=== PATIENT | male | born 1990 | race Caucasian/White ===

== ENCOUNTER 2019-11-17 13:12 | Inpatient (IN) | payer MEDICAID, OTHER ==
[~2019-11-17] VITALS: Ht 175.3 cm; Wt 102.5 kg
[2019-11-17 13:54] LABS: BASOPHILS % (AUTO) 0.4 % (0.0-2.0); EOSINOPHILS % (AUTO) 0.3 % (1.0-6.0); HEMATOCRIT 50.6 % (41-53); HEMOGLOBIN 18.3 g/dL (13.5-17.5); LYMPHOCYTES # (AUTO) 1.4 K/uL (1.0-4.8); LYMPHOCYTES % (AUTO) 15.8 % (22.0-44.0); MEAN CORPUSCULAR HEMOGLOBIN 31.3 pg (26.0-34.0); MEAN CORPUSCULAR HGB CONC 36.1 G/dL (31.0-37.0); MEAN CORPUSCULAR VOLUME 87 fL (80-100); MONOCYTES # (AUTO) 0.7 K/uL (0.1-1.0); MONOCYTES % (AUTO) 8.4 % (2.0-9.0); NEUTROPHILS # (AUTO) 6.7 K/uL (1.8-7.7); NEUTROPHILS % (AUTO) 75.1 % (40.0-70.0); PLATELET COUNT (AUTO) 329 K/uL (150-450); RED BLOOD CELL COUNT(AUTO) 5.84 MIL/uL (4.50-5.90); RED CELL DISTRIBUTION WIDTH 13.2 % (11.5-14.5)
[2019-11-17 14:01] LABS: ANION GAP 13 mmol/L (8-16); CALCIUM, TOTAL 9.5 mg/dL (8.8-10.5); CARBON DIOXIDE 27 mmol/L (22-29); CHLORIDE 98 mmol/L (98-107); CREATININE 0.87 mg/dL (0.60-1.30); GLOMERULAR FILTR. RATE CALC > 60 mL/min (>60); GLUCOSE,RANDOM 81 mg/dL (70-110); SODIUM SERUM 138 mmol/L (136-145); UREA NITROGEN, BLOOD 12 mg/dL (7-18)
[2019-11-17 14:07] LABS: ALANINE AMINOTRANSFERASE 97 U/L (12-78); ALBUMIN 4.7 g/dL (3.4-5.0); ALKALINE PHOSPHATASE 86 U/L (46-116); ASPARTATE AMINOTRANSFERASE 34 U/L (15-37); BILIRUBIN,TOTAL 0.6 mg/dL (0.1-1.0); TOTAL PROTEIN, SERUM 8.6 g/dL (6.4-8.2)
[2019-11-17 15:03] LABS: AMPHET/METH SCREEN,URINE NEGATIVE (NEGATIVE); BARBITURATE SCREEN, URINE NEGATIVE (NEGATIVE); BENZODIAZEPINES SCREEN,URINE NEGATIVE (NEGATIVE); CANNABINOID SCREEN,URINE NEGATIVE (NEGATIVE); COCAINE SCREEN,URINE NEGATIVE (NEGATIVE); METHADONE SCREEN, URINE NEGATIVE (NEGATIVE); OPIATE SCREEN,URINE NEGATIVE (NEGATIVE)
[2019-11-17 15:11] LABS: PHENCYCLIDINE SCREEN,URINE NEGATIVE (NEGATIVE)
[2019-11-17 18:14] LABS: SALICYLATE 1.6 mg/dL (2.8-20.0)
[2019-11-17 18:15] LABS: ACETAMINOPHEN < 2 mcg/mL (10-30)
[2019-11-17] MEDS ORDERED: QUEtiapine FUMARATE 100 MG TABLET PO PRN (18:15)
[2019-11-17] MEDS ORDERED: LORazepam 2 MG TABLET PO PRN (18:15)
[2019-11-17] MEDS ORDERED: ZOLPIDEM TARTRATE 10 MG TABLET PO PRN (18:15)
[2019-11-17] MEDS ORDERED: CALCIUM CARBONATE 500 MG CHEWABLE TABLET CHEW ONE (22:00)
[2019-11-18 02:11] VITALS: BP 109/60
[2019-11-18] MEDS ORDERED: INFLUENZA VIRUS VACCINE QVS 2019-20 (3YR+)/PF 60 MCG/0.5 ML SYRINGE IM ONE (02:45)
[2019-11-18] MEDS: FLUoxetine HCL 20 MG CAPSULE PO SCH (08:16)
[2019-11-18 08:26] VITALS: BP 132/76
[2019-11-18 08:49] LABS: CHOL/HDL RATIO 5.1 (4.2-7.3); THYROID STIMULATING HORMONE 3.68 uIU/mL (0.36-3.74)
[2019-11-18 09:09] LABS: FREE T4 (FREE THYROXINE) 1.49 ng/dL (0.76-1.46)
[2019-11-18] MEDS ORDERED: GuaiFENesin/D-METHORPHAN [SUGAR-FREE] 200-20MG/10 ML SYRUP UDCUP PO PRN (14:30)
[2019-11-18] MEDS ORDERED: HydrOXYzine PAMOATE 50 MG CAPSULE PO PRN (14:30)
[2019-11-18] MEDS ORDERED: TUBERCULIN, PURIFIED PROTEIN DERIVATIVE 5 TU/0.1 ML SYRINGE ID ONE (14:30)
[2019-11-18] MEDS ORDERED: ACETAMINOPHEN 325 MG TABLET PO PRN (14:30)
[2019-11-18] MEDS ORDERED: PROMETHAZINE HCL 25 MG TABLET PO PRN (14:30)
[2019-11-18] MEDS ORDERED: LOPERAMIDE HCL 2 MG CAPSULE PO PRN (14:30)
[2019-11-18] MEDS ORDERED: MAGNESIUM HYDROXIDE SUSPENSION 30 ML UDCUP PO PRN (14:30)
[2019-11-18] MEDS ORDERED: MAG HYDROX/AL HYDROX/SIMETH ES 30 ML SUSPENSION UDCUP PO PRN (14:30)
[2019-11-18] MEDS: THIAMINE HCL 100 MG TABLET PO SCH (16:14)
[2019-11-18 16:24] VITALS: BP 126/79
[2019-11-19 06:13] VITALS: BP 127/66
[2019-11-19] MEDS: MULTIVITAMINS WITH MINERALS, THERAPEUTIC TABLET PO SCH (08:14)
[2019-11-19] MEDS: THIAMINE HCL 100 MG TABLET PO SCH ×2 (08:14→16:49)
[2019-11-19] MEDS: FOLIC ACID 1 MG TABLET PO SCH (08:14)
[2019-11-19] MEDS: FLUoxetine HCL 20 MG CAPSULE PO SCH (08:14)
[2019-11-19 08:25] VITALS: BP 131/84
[2019-11-19] MEDS ORDERED: FLUO-191 PO (15:00)
[2019-11-19 16:06] VITALS: BP 135/70
[2019-11-20 01:32] VITALS: BP 124/78
[2019-11-20] MEDS: FOLIC ACID 1 MG TABLET PO SCH (08:29)
[2019-11-20] MEDS: THIAMINE HCL 100 MG TABLET PO SCH (08:29)
[2019-11-20] MEDS: MULTIVITAMINS WITH MINERALS, THERAPEUTIC TABLET PO SCH (08:29)
[2019-11-20] MEDS: FLUoxetine HCL 20 MG CAPSULE PO SCH (08:29)
[2019-11-20 08:42] VITALS: BP 127/71
== END 2019-11-20 12:20 | disposition home or self-care (01) | DRG 751 ==
LOC: EMS 13:15 → B2S 11-18 01:03
PROVIDERS: ADMIT Psychiatry & Neurology Psychiatry; ATTEND Psychiatry & Neurology Psychiatry
DX: F33.1 Major depressive disorder, recurrent, moderate (principal); R45.851 Suicidal ideations; Z91.19 Patient's noncompliance with other medical treatment and regimen; R79.89 Other specified abnormal findings of blood chemistry; Z81.8 Family history of other mental and behavioral disorders; Z28.21 Immunization not carried out because of patient refusal
CPT/HCPCS: 84439; 84443; G0480; G0481